=== PATIENT | male | born 1965 | race Caucasian/White ===

== ENCOUNTER 2021-03-27 12:33 | Emergency (ER) | payer MEDICAID ==
[~2021-03-27] VITALS: Ht 165.1 cm; Wt 70.0 kg
[2021-03-27] MEDS ORDERED: IBUPROFEN 800MG TABLET PO ONE (13:45)
[2021-03-27] MEDS ORDERED: TOPUD PO (13:47)
[2021-03-27 14:02] VITALS: BP 152/73
== END 2021-03-27 15:06 | disposition home or self-care (01) ==
LOC: ER 12:53
DX: S09.8XXA Other specified injuries of head, initial encounter (principal); E11.9 Type 2 diabetes mellitus without complications; W18.39XA Other fall on same level, initial encounter; Y93.89 Activity, other specified; Y92.89 Other specified places as the place of occurrence of the external cause; Y99.8 Other external cause status
CPT/HCPCS: 99283